=== PATIENT | male | born 1990 ===

== ENCOUNTER 2021-04-01 13:19 | Inpatient (IN) | payer OTHER ==
[~2021-04-01] VITALS: Ht 165.1 cm; Wt 63.5 kg
[2021-04-05] MEDS ORDERED: AMOX1TAB5 PO (11:55)
== END 2021-04-05 13:33 | disposition home or self-care (01) | DRG 343 ==
LOC: ER 13:19 → SEC-K 21:56 → SURH 21:56
PROVIDERS: ADMIT Surgery; ATTEND Surgery
PROC: BW21YZZ Computerized Tomography (CT Scan) of Abdomen and Pelvis using Other Contrast (ICD-10-PCS; 2021-04-02)
PROC: 0DTJ0ZZ Resection of Appendix, Open Approach (ICD-10-PCS; principal; 2021-04-02 10:15)
DX: K35.890 Other acute appendicitis without perforation or gangrene (principal); Z20.822 Contact with and (suspected) exposure to COVID-19